=== PATIENT | male | born 1970 | race Two or more races ===

== ENCOUNTER 2020-08-29 14:28 | Emergency (ER) | payer SELFPAY ==
[~2020-08-29] VITALS: Ht 165.1 cm; Wt 59.0 kg
[2020-08-29 14:39] VITALS: BP 143/97
== END 2020-08-29 15:04 ==
LOC: ER 14:28
DX: T65.891A Toxic effect of other specified substances, accidental (unintentional), initial encounter (principal); H57.9 Unspecified disorder of eye and adnexa; F17.210 Nicotine dependence, cigarettes, uncomplicated; Y92.89 Other specified places as the place of occurrence of the external cause